=== PATIENT | female | born 1955 | race Caucasian/White ===

== ENCOUNTER 2024-11-06 15:11 | Emergency (ER) | payer MEDICARE, BC ==
[~2024-11-06] VITALS: Ht 160 cm; Wt 66.2 kg
[2024-11-06] MEDS: IV NS 0.9% 1,000 ML BAG IV ONE (16:00)
[2024-11-06] MEDS: MORPHINE SULFATE INJ 2 MG/ML DISP.SYRIN IV ONE (16:33)
[2024-11-06 16:34] LABS: BASOPHILS % (AUTO) 0.3 % (0.0-2.0); EOSINOPHILS % (AUTO) 0.4 % (0.0-6.0); HEMATOCRIT 43 % (33-45); HEMOGLOBIN 14.7 g/dL (11.5-14.8); LYMPHOCYTES # (AUTO) 0.9 K/uL (0.8-4.8); LYMPHOCYTES % (AUTO) 9.1 % (20.0-44.0); MEAN CORPUSCULAR HEMOGLOBIN 31 PG (26.0-33.0); MEAN CORPUSCULAR HGB CONC 34 g/dl (31.0-36.0); MEAN CORPUSCULAR VOLUME 90 fL (82-100); MONOCYTES # (AUTO) 0.5 K/uL (0.1-1.30); MONOCYTES % (AUTO) 5.3 % (2.0-12.0); NEUTROPHILS # (AUTO) 8.1 K/uL (1.8-8.9); NEUTROPHILS % (AUTO) 84.9 % (43.0-81.0); PLATELET COUNT (AUTO) 151 K/uL (150-450); RED CELL DISTRIBUTION WIDTH 13.8 % (11.5-15.0); WHITE BLOOD COUNT (AUTO) 9.6 K/uL (4.3-11.0)
[2024-11-06] MEDS: ONDANSETRON HCL/PF 4 MG/2 ML VIAL IVP ONE (16:34)
[2024-11-06 16:53] LABS: CREATININE 0.8 mg/dL (0.6-1.3); POTASSIUM 3.8 mmol/L (3.5-5.1)
[2024-11-06 16:58] LABS: ALBUMIN 3.7 g/dL (3.4-5.0); BILIRUBIN,DIRECT 0.2 mg/dL (0.0-0.2)
[2024-11-06] MEDS ORDERED: ONDA4TAB11 PO (17:40)
[2024-11-06 19:08] VITALS: BP 122/75; TEMP 98.4; O2SAT 100
== END 2024-11-06 19:09 | disposition home or self-care (01) ==
LOC: ER 15:46
DX: R10.84 Generalized abdominal pain (principal); R11.2 Nausea with vomiting, unspecified
CPT/HCPCS: 99284; 74176; 96360; 85025; 80048; 83690; 80076; 36415; J7030